=== PATIENT | female | born 1965 | race Caucasian/White ===

== ENCOUNTER 2018-04-03 21:50 | Emergency (ER) | payer BC ==
[~2018-04-03] VITALS: Ht 160 cm; Wt 95.5 kg
[2018-04-04] MEDS ORDERED: PERCOCET 5/31 TABLET PO (01:07)
[2018-04-04 01:24] VITALS: BP 121/73
== END 2018-04-04 01:25 | disposition home or self-care (01) ==
LOC: EME 21:50
DX: M25.562 Pain in left knee (principal); M25.552 Pain in left hip; M25.551 Pain in right hip; S80.212A Abrasion, left knee, initial encounter; W01.0XXA Fall on same level from slipping, tripping and stumbling without subsequent striking against object, initial encounter; Y93.01 Activity, walking, marching and hiking; Y92.89 Other specified places as the place of occurrence of the external cause; I10 Essential (primary) hypertension; K21.9 Gastro-esophageal reflux disease without esophagitis; F32.9 Major depressive disorder, single episode, unspecified; Z85.828 Personal history of other malignant neoplasm of skin; Z90.710 Acquired absence of both cervix and uterus; Z88.1 Allergy status to other antibiotic agents
CPT/HCPCS: 73502; 73552; 73564; 73590; 99281; 99284; J2270